=== PATIENT | male | born 1970 ===

== ENCOUNTER → 2021-03-16 14:01 | Outpatient (BNVA) | payer SELFPAY | PROVIDERS: PCP Nurse Practitioner Family; Visit Provider Specialist | DX: G62.9 Polyneuropathy, unspecified (principal); R20.0 Anesthesia of skin; R20.2 Paresthesia of skin; R73.9 Hyperglycemia, unspecified | CPT/HCPCS: 99203 ==

== ENCOUNTER → 2023-04-27 10:53 | Outpatient (BNVA) | payer SELFPAY | PROVIDERS: PCP Clinical Nurse Specialist Adult Health; Visit Provider Clinical Nurse Specialist Adult Health | DX: I10 Essential (primary) hypertension (principal) | CPT/HCPCS: 80053; 80061; 85025 ==